=== PATIENT | male | born 1960 | race Caucasian/White ===

== ENCOUNTER 2020-10-16 13:44 | Emergency (ER) | payer OTHER ==
[~2020-10-16] VITALS: Ht 172.7 cm; Wt 72.6 kg
[2020-10-16] MEDS ORDERED: LIDOCAINE HCL 1% LOCAL INJ 20 ML VIAL INJ STA (14:39)
[2020-10-16] MEDS ORDERED: CEPHALEXIN 500 MG CAP ONE (14:53)
[2020-10-16] MEDS ORDERED: TETANUS/DIPHTHERIA TOX ADULT 0.5 ML SYR ONE (14:53)
[2020-10-16 16:12] VITALS: BP 134/81
[2020-10-16] MEDS ORDERED: TETANUS/DIPHTHERIA TOX ADULT 0.5 ML SYR IM ONE (16:15)
[2020-10-16] MEDS ORDERED: CEPHALEXIN 500 MG CAP PO SCH (16:15)
== END 2020-10-16 16:13 | disposition home or self-care (01) ==
LOC: ER 14:00
DX: S62.625B Displaced fracture of middle phalanx of left ring finger, initial encounter for open fracture (principal); W23.1XXA Caught, crushed, jammed, or pinched between stationary objects, initial encounter; Y99.0 Civilian activity done for income or pay
CPT/HCPCS: 90714; 99283